=== PATIENT | male | born 1955 | race African-American/Black ===

== ENCOUNTER 2017-12-23 20:35 | Observation (INO) | payer BC, SELFPAY ==
[2017-12-23] MEDS ORDERED: Nitroglycerin 2% Ointment 1 INCH/1 GM Packet ONE (20:48)
[2017-12-23 20:54] LABS: #Basophils 0.1 thou/uL (0.0-0.2); #Eosinphils 0.1 thou/uL (0.0-0.7); #Lymphocytes 1.7 thou/uL (1.20-3.40); #Monocytes 0.7 thou/uL (0.11-0.59); #Neutrophils 4.9 thou/uL (1.40-6.50); %Basophils 0.9 % (0.0-1.0); %Eosinophils 0.9 % (0.0-10.0); %Lymphocytes 22.4 % (21.0-51.0); %Monocytes 9.6 % (0.0-10.0); %Neutrophils 66.2 % (42.0-75.0); Hemoglobin 15.4 g/dL (14.0-18.0); Mean Corpuscular HGB CONC 32.5 g/dL (32.0-36.0); Mean Corpuscular Hemoglobin 27.6 pg (27.0-31.0); Mean Corpuscular Volume 84.7 fL (78.0-98.0); Mean Platelet Volume 7.8 fL (7.4-10.4); Platelet Count 229 thou/uL (130-400); RBC Distribution Width 12.9 % (11.5-14.5); Red Blood Cell (RBC) Count 5.58 mill/uL (4.70-6.10); White Blood Cell (WBC) Count 7.4 thou/uL (4.8-10.8)
[2017-12-23] MEDS ORDERED: Lidocaine Viscous Sol 2% 15 ml UD Cup ONE (20:56)
[2017-12-23] MEDS ORDERED: Mag-Al Plus 1200 MG/1200 MG/120 MG/30 ML UDCUP ONE (20:56)
[2017-12-23 21:09] LABS: ALT (SGPT) 21 U/L (8-55); AST (SGOT) 19 U/L (5-34); Albumin 4.3 g/dL (3.4-4.8); Alkaline Phosphatase 91 U/L (40-150); Anion Gap 14 mmol/L (10-20); BUN (Urea Nitrogen) 27 mg/dL (8.4-25.7); Bilirubin, Total 0.5 mg/dL (0.2-1.2); CK (CPK) 205 U/L (30-200); Calc. Creatinine Clearance 0 mL/min (70-130); Calcium 9.6 mg/dL (7.8-10.44); Carbon Dioxide 23 mmol/L (23-31); Chloride 106 mmol/L (98-107); Estimated GFR-MDRD 53; Globulin 4.1 g/dL (2.4-3.5); Glucose 88 mg/dL (80-115); Lipase 33 U/L (8-78); Potassium 3.8 mmol/L (3.5-5.1); Protein, Total 8.4 g/dL (5.8-8.1); Sodium 139 mmol/L (136-145)
[2017-12-23 21:10] LABS: Troponin I Less than 0.010 ng/mL (< 0.028)
--- NOTE | 2017-12-23 22:11 | RAD ---
PORTABLE AP CHEST X-RAY 12/23/17 HISTORY: Left sided chest pain and shortness of breath on exertion. COMPARISON: 12/29/10. FINDINGS: There is persistent elevation of the left hemidiaphragm with gas distention loops of bowel beneath ea ch hemidiaphragm also seen on prior study. This exam is obtained in a shallow depth of inspiration wh ich accentuates the bronchovascular markings. The cardiac silhouette is obscured due to shallow depth of inspiration and elevation of each hemidiaphragm. There is bibasilar atelectasis noted. No other i nterval change. IMPRESSION: 1. Elevation left hemidiaphragm with bibasilar atelectasis. 2. Accentuation of bronchovascular markings due to shallow depth of inspiration. However, no def inite acute cardiopulmonary process is present. POS: JENNA
[2017-12-23] MEDS ORDERED: Enoxaparin Sodium 40 MG/0.4 ML SYRINGE ONE (22:24)
[2017-12-23] MEDS ORDERED: Enoxaparin Sodium 100 MG/ML SYRINGE ONE (22:24)
--- NOTE | 2017-12-23 22:42 | CT ---
CT ANGIOGRAM THORAX WITH IV CONTRAST AND 3D RECONSTRUCTIONS 12/23/17 HISTORY: Intermittent left sided chest pain with shortness of breath on exertion. COMPARISON: None available. FINDINGS: There is suboptimal timing of the contrast bolus and the pulmonary arteries are not well opacified. A pulmonary embolus cannot be excluded based on this examination. Thoracic aorta is normal in caliber without evidence of an aortic dissection. There is elevation of the left hemidiaphragm with atelectasis at the left lung base. The lungs otherw ise appear clear. No pleural effusion is seen. The visualized upper abdomen has a normal CT appearance. IMPRESSION: 1. Suboptimal exam for evaluation of pulmonary embolus. Pulmonary emboli are unable to be evalu ated on this examination due to timing of the contrast bolus. 2. Thoracic aorta is normal in caliber without evidence of an aortic dissection. 3. Elevation of the left hemidiaphragm with atelectasis at the left lung base. POS: [facility]
[2017-12-24] MEDS ORDERED: Ondansetron ODT 4 MG TAB SL PRN (00:19)
[2017-12-24] MEDS ORDERED: Ondansetron PF 4 MG/2 ML Vial IVP PRN ×2 (00:19→02:23)
[2017-12-24] MEDS ORDERED: Acetaminophen 325 MG TAB PO PRN ×2 (00:19→02:23)
[2017-12-24 00:27] LABS: Troponin I Less than 0.010 ng/mL (< 0.028)
[2017-12-24 00:35] VITALS: TEMP 98.2
[2017-12-24] MEDS ORDERED: Loperamide HCl 2 MG CAP PO PRN (02:23)
[2017-12-24] MEDS ORDERED: HYDROcodone/Acetaminophen 5/325 mg Tablet PO PRN (02:23)
[2017-12-24] MEDS ORDERED: Dextrose 50% Abboject 50 ML SYRINGE SLOW IVP PRN (02:23)
[2017-12-24] MEDS ORDERED: Calcium Carbonate 500 MG ChewTAB PO PRN (02:23)
[2017-12-24] MEDS ORDERED: HumaLOG 300 UNITS/3 ML VIAL SC PRN ×2 (02:23)
[2017-12-24] MEDS ORDERED: Ondansetron ODT 4 MG TAB PO PRN (02:23)
[2017-12-24] MEDS ORDERED: Bisacodyl 10 MG SUPP PR PRN (02:23)
[2017-12-24] MEDS ORDERED: Dextrose 5% in Water 1,000 ML IV PRN (02:23)
[2017-12-24] MEDS ORDERED: cloNIDine 0.1 MG TAB PO PRN (02:23)
[2017-12-24] MEDS ORDERED: Zolpidem Tartrate 5 MG TAB PO PRN (02:23)
[2017-12-24] MEDS ORDERED: Senokot S 8.6-50 MG TAB PO PRN (02:23)
[2017-12-24] MEDS ORDERED: Nitroglycerin 0.4 MG TAB (25 Tab Bottle) PO PRN (02:23)
--- NOTE | 2017-12-24 03:57 | HP ---
PRIMARY CARE PHYSICIAN: Dr. Tessa Christensen. REASON FOR ADMISSION: Chest pain. HISTORY OF PRESENT ILLNESS: A 62-year-old -[place] male who went to [facility] erg[facility] Room for evaluation of chest pain. Patient reports that chest pain started on Friday, whic h was intermittent left-sided, associated with mild shortness of breath. He denies any radiation of pain. He was feeling mild dizziness. He denies any relation of chest pain with food, respiration, o r activity. Patient reports that he went to [facility] on Friday and he return back to [facility] on Fri. He drove from [place] to [place], he is professionally gas truck driver. He denies any lower extrem ity edema or calf tenderness. Today again, he was experiencing chest pressure, which was substernal in location associated with mild shortness of breath and dizziness and that is why he went to [facility] Emergency Room for evaluation, where he had elevated D-dimer and that is why CT angio was done, which was negative for pulmonary embolism, but contrast was not good quality and that is wh y pulmonary embolism cannot be entirely excluded. Patient was given Lovenox 1 mg per kg at emergency room. He was given aspirin, GI cocktail, nitropatch and subsequently he was feeling much better. H e denies any hemoptysis. He denies any upper respiratory or lower respiratory symptoms. He denies a ny flu-like symptoms. He denies any orthopnea, PND, or leg swelling. He denies any syncopal episode . He denies any exertion related chest pain or palpitation. REVIEW OF SYSTEMS: Please see my HPI for pertinent positive and negative. All other review of syste m reviewed and negative except as mentioned in the HPI: Constitutional: Weight loss or gain, abilit y to conduct usual activities. Skin: Rash, itching. Eyes: Double vision, pain. ENT/Mouth: Nose bleeding, neck stiffness, pain, tenderness. Cardiovascular: Palpitations, dyspnea on exertion, orth opnea. Respiratory: Shortness of breath, wheezing, cough, hemoptysis, fever, or night sweats. Sonia rointestinal: Poor appetite, abdominal pain, heartburn, nausea, vomiting, constipation, or diarrhea. Genitourinary: Urgency, frequency, dysuria, nocturia. Musculoskeletal: Pain, swelling. Neurolog ic/Psychiatric: Anxiety, depression. Allergy/Immunologic: Skin rash, bleeding tendency. PAST MEDICAL HISTORY: Diabetes type 2, hypertension, dyslipidemia, obesity. PAST SURGICAL HISTORY: Cardiac catheterization, hernia repair. PAST PSYCHIATRIC HISTORY: Anxiety and depression. SOCIAL HISTORY: Patient is , lives at home. He is gas truck driver. No history of tobacco, alco hol, or illicit drug abuse. FAMILY HISTORY: No strong family history of premature coronary artery disease, stroke, or cancer. ALLERGIES: No known drug allergy. CURRENT HOME MEDICATIONS: Clonidine 0.1 mg p.o. q.4 hourly p.r.n., amitriptyline 25 mg p.o. daily, a spirin 81 mg p.o. daily, Lipitor 10 mg p.o. at bedtime, gabapentin 600 mg p.o. t.i.d., glipizide 5 mg p.o. daily, Toprol-XL 25 mg p.o. daily, Benicar with hydrochlorothiazide one tablet p.o. daily. EMERGENCY ROOM COURSE: Patient is given Lovenox 1 mg per kg, GI cocktail 40 mL, aspirin 325 mg, and nitropatch. PHYSICAL EXAMINATION: VITAL SIGNS: On arrival, blood pressure 170/111, pulse 82, respiratory rate of 16, saturation 98% on room air, weight 112.5 kilograms. GENERAL: Patient is currently alert, awake, no obvious acute distress. HEENT: Head, normocephalic, atraumatic. Eyes: Pupils round, reactive to light. Extraocular muscle intact. ENT: Oropharynx within normal limits. Moist mucous membranes. No oral lesion, no pharyng eal erythema, no exudate. NECK: Supple, no JVD, no thyromegaly, no carotid bruit, no jugular venous distention. LUNGS: Clear to auscultation without any rhonchi or rales. CARDIAC: S1, S2 regular. No murmur, no gallop, no rub. ABDOMEN: Soft, obesity present. Bowel sounds present, nontender, nondistended. No organomegaly, no mass, no suprapubic tenderness. BACK: Unremarkable, no CVA tenderness. EXTREMITIES: Upper extremity passive movement of all joints are normal. Lower extremities: No jas a. Good distal pulsation, no calf tenderness. SKIN: No skin rash. HEMATOLOGICAL: No lymphadenopathy. NEUROLOGIC: Nonfocal examination. SIGNIFICANT LABORATORY DATA: CBC: WBC 7.4, hemoglobin 15.4, platelet 229. D-dimer 1.17. BMP shows sodium 139, potassium 3.8, chloride 106, carbon dioxide 23, BUN 27, creatinine 1.60, glucose 88, kodi cium 9.6. LFT: AST is 19, ALT 21, alkaline phosphatase 91, albumin 4.3. CK 205. CK-MB 2.0, tropon in I less than 0.010. Lipase 33. EKG showing normal sinus rhythm without any ischemic changes. ASSESSMENT AND PLAN: 1. Chest pain. Patient's chest pain description is atypical. Patient has several risk factors for coronary artery disease including diabetes, age, hypertension, obesity. Patient's clinical presentat ion does not consistent with thromboembolic disorder, though his D-dimer is slightly elevated and CT angio is negative for pulmonary embolism and patient is already given Lovenox 1 mg per kg. At this p oint, we will pursue cardiac workup. We will do ultrasound of the lower extremity to rule out deep v enous thrombosis, as CT angio was not conclusive. Meanwhile, we will continue nitropatch q.8 hourly, aspirin 81 mg p.o. daily. Check lipid profile for risk stratification. 2. Diabetes, type 2. Continue glipizide 5 mg p.o. daily. Watch for hypoglycemia. We will hold thi s morning if patient is n.p.o. for stress test. 3. Dyslipidemia. Check lipid profile tomorrow and continue Lipitor 10 mg p.o. at bedtime. 4. Diabetic neuropathy. Continue gabapentin 600 mg p.o. t.i.d. 5. Anxiety and depression. Continue amitriptyline 25 mg p.o. daily. 6. Hypertension. Hold Toprol-XL, because we are doing stress test tomorrow. Continue Benicar hydro chlorothiazide one tablet p.o. daily and clonidine p.r.n. basis. 7. Obesity with BMI 31. Dietary education given, weight loss education given. Healthy lifestyle me asures discussed with the patient. 8. Deep venous thrombosis prophylaxis not needed, because we are expecting discharge in 24 hours and patient already received Lovenox 1 mg per kg at emergency room. 9. Gastrointestinal prophylaxis, Pepcid 20 mg p.o. b.i.d. CODE STATUS: Patient is FULL CODE. Patient's is surrogate decision maker. Disposition plan based on stress test result.
[2017-12-24 04:05] LABS: Cardiac Risk 4.1 (Less than 4.5)
[2017-12-24] MEDS ORDERED: Nitroglycerin 2% Ointment 1 INCH/1 GM Packet TOP SCH (06:00)
[2017-12-24] MEDS ORDERED: Aspirin 325 mg Enteric Coated Tablet PO SCH (09:00)
[2017-12-24] MEDS ORDERED: Famotidine 20 MG TAB PO SCH (09:00)
[2017-12-24] MEDS ORDERED: Aspirin 81 mg Enteric Coated Tablet PO SCH (09:00)
[2017-12-24] MEDS ORDERED: Amitriptyline HCl 25 MG TAB PO SCH (09:00)
[2017-12-24] MEDS ORDERED: Hydrochlorothiazide 25 MG TAB PO SCH (09:00)
[2017-12-24] MEDS: Gabapentin 300 MG CAP PO SCH ×2 (09:00→14:48)
[2017-12-24] MEDS: Nitroglycerin 2% Ointment 1 INCH/1 GM Packet TOP SCH ×2 (09:11→14:48)
--- NOTE | 2017-12-24 09:16 | ULT ---
BILATERAL LOWER EXTREMITY VENOUS DUPLEX ULTRASOUND INCLUDING COLOR AND SPECTRAL DOPPLER IMAGING: HISTORY: A 62-year-old male with a history of left lower leg swelling and edema. Exam performed from groin to ankle including visualized greater saphenous, common femoral, superficia l femoral, profunda femoral, popliteal, trifurcation, and posterior tibial vein regions. There is ph asic flow at all levels with normal compressibility and normal augmentation. IMPRESSION: No evidence for deep venous thrombosis. POS: JEAN
--- NOTE | 2017-12-24 14:12 | NM ---
CARDIAC SPECT STRESS REST WITH EF AND WALL MOTION: History: 62-year-old male with history of chest pain. Technique: Adenosine Sestamibi study is performed. Patient was injected with 30.6 mCi Technetium 99M Sestamibi intravenously for stress images and patie nt was injected with 10.2 mCi Technetium 99M Sestamibi intravenously for resting images. FINDINGS: Multiple SPECT images in the short axis, vertical long axis, and horizontal long axis demonstrates no scan evidence for infarct or ischemia. TID: 1.25 LHR: 0.37 EDV: 98 mL Ejection fraction: 60% MYOCARDIAL PERFUSION WALL MOTION: Normal. FINDINGS: Unremarkable cardiac SPECT with EF and wall motion. No scan evidence for infarct or ischemia. POS: JEAN
[2017-12-24 16:10] VITALS: BP 142/84
[2017-12-24] MEDS ORDERED: Atorvastatin Calcium 10 MG TAB PO SCH (21:00)
--- NOTE | 2017-12-24 23:17 | DIS ---
DATE OF ADMISSION: 12/23/2017 DATE OF DISCHARGE: 12/24/2017 PRIMARY CARE PHYSICIAN: Germain Christensen PA-C Patient is a FULL CODE. PROCEDURES: The patient had bilateral venous Doppler studies, which were both negative. Had a nucle ar med stress test with an ejection fraction of 60%. CTA of the chest was done in the ER, which demo nstrated a PE could not be totally excluded due to poor uptake. Otherwise, no acute findings. Chest x-ray with no acute findings. CONSULTATIONS: None. DISCHARGE DIAGNOSES: 1. Chest pain, most likely atypical in nature. 2. Diabetes mellitus 2. 3. Hypertension. 4. Hyperlipidemia. 5. Obesity. REVIEW OF SYSTEMS: On exam this morning, the patient denied any chest pain or shortness of breath. He was alert and oriented, denied any changes to mentation. Eyes: Denies change in vision. ENT: D enied any congestion, sore throat. Respiratory: Denied any shortness of breath, any orthopnea. Car diac: The patient denied palpitations or chest pain. Gastrointestinal: The patient denied any abdo pamela pain, nausea, vomiting or diarrhea. Genitourinary: Denies urgency, frequency or dysuria. Mus culoskeletal: Denies any pain or swelling. Neurologic: Denies any focal changes in vision, weaknes s on either side. Psychological: The patient denies any anxiety or depression. PHYSICAL EXAMINATION: VITAL SIGNS: Temperature 98.2, pulse is 70, respirations 18, pulse ox 95 on room air, blood pressure 117/76. GENERAL: The patient is currently alert, awake. No obvious signs of distress. HEENT: The patient has normocephalic head, atraumatic. Eyes, pupils are round, reactive to light. Extraocular muscles intact. Mucous membranes are moist. NECK: Supple, no JVD. LUNGS: Clear to auscultation. No rhonchi or rales. CARDIAC: S1, S2 with regular rhythm. No murmur, gallop or rub. ABDOMEN: Soft. Exam limited to body habitus. Bowel sounds are present x4. BACK: Unremarkable. Denies any CVA tenderness. EXTREMITIES: Pulses sensation and range of motion bilateral upper and lower extremities. SKIN: No rashes noted. NEUROLOGIC: No focal deficits. HOSPITAL COURSE: A 62-year-old male who presented to the ED on 12/23/2017 with a complaint of left-s ided chest pain with dyspnea on exertion starting this past Friday. Describes pain as pressure. R eports feeling a little lightheaded when he changed positions. 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 He reports he has had a heart zulma terization in the past. Denies any stents. Denies any history of DVTs and denies any family history of any cardiac issues. The patient had elevated D-dimer in the ER and a CT angio of the chest was p erformed, but was deemed inconclusive. Patient was given Lovenox in the ED. Dopplers of the bilater al lower extremities were negative today. The patient's vital signs remained stable. The patient de nies any chest pain or shortness of breath. Pulse ox has remained 95% to 96% on room air. In light of the negative stress test and bilateral Doppler being negative, case discussed with Dr. Kent, rossana bruce grees with the plan to discharge home with close follow up with his PCP. ALLERGIES: No known allergies. MEDICATIONS: Patient will be continued on his home medication regimen, which includes: 1. Amitriptyline 25 mg p.o. . 2. Aspirin low dose 81 mg p.o. daily. 3. 10 mg p.o. at bedtime. 4. Clonidine 0.1 mg tablet q.4h. 5. Gabapentin 600 mg p.o. t.i.d. 6. Glipizide 5 mg p.o. daily. 7. Toprol-XL 25 mg p.o. daily and olmesartan hydrochlorothiazide one tablet p.o. daily. DISPOSITION CONDITION: He is stable, he will be discharged home with his family. He is to follow up with Tessa Christensen in 1 week.
== END 2017-12-24 18:35 | disposition home or self-care (01) ==
LOC: SCSER 20:35 → 2SW 23:14
PROVIDERS: ADMIT Internal Medicine; ATTEND Internal Medicine
DX: R07.9 Chest pain, unspecified (principal); I10 Essential (primary) hypertension; E78.5 Hyperlipidemia, unspecified; E66.9 Obesity, unspecified; E11.40 Type 2 diabetes mellitus with diabetic neuropathy, unspecified; F41.8 Other specified anxiety disorders; Z68.31 Body mass index [BMI] 31.0-31.9, adult; Z79.899 Other long term (current) drug therapy
CPT/HCPCS: 36415; 36416; 71045; 71275; 78452; 80053; 80061; 82553; 83690; 84484; 85025; 85379; 93005; 93017; 93970; 96372; A9500; G0378; J0153; J1650

== ENCOUNTER 2018-08-16 16:40 | Emergency (ER) | payer BC, SELFPAY ==
[2018-08-16] MEDS ORDERED: HYDROcodone/Acetaminophen 5/325 mg Tablet ONE (17:04)
--- NOTE | 2018-08-16 17:48 | RAD ---
RIGHT KNEE FOUR VIEWS: HISTORY: Knee pain. FINDINGS: The joint spaces appear normally maintained. Minimal degenerative change. No evidence of fracture o r acute osseous abnormality. A small joint effusion cannot be excluded. IMPRESSION: No acute abnormality identified. POS: [facility]
== END 2018-08-16 17:28 | disposition home or self-care (01) ==
LOC: SCSER 16:40
DX: M25.561 Pain in right knee (principal); E78.5 Hyperlipidemia, unspecified; I10 Essential (primary) hypertension; Z79.899 Other long term (current) drug therapy; Z79.82 Long term (current) use of aspirin